=== PATIENT | female | born 1980 | race Caucasian/White ===

== ENCOUNTER 2016-11-15 20:01 | Emergency (ER) | payer OTHER ==
[~2016-11-15] VITALS: Ht 149.8 cm; Wt 53.1 kg
[2016-11-15] MEDS ORDERED: HYDROCODONE BIT1 T20 PO (20:24)
[2016-11-15] MEDS ORDERED: DULOXETINE HCL60 MG PO (20:25)
[2016-11-15] MEDS ORDERED: DIAZEPAM10 M1 PO (20:25)
[2016-11-15] MEDS ORDERED: FLUVOXAMINE MA100 MG PO (20:26)
[2016-11-15 20:27] VITALS: BP 117/68
== END 2016-11-15 21:04 | disposition home or self-care (01) ==
LOC: ED 20:01
DX: G89.29 Other chronic pain (principal); M25.531 Pain in right wrist; F17.200 Nicotine dependence, unspecified, uncomplicated; G40.909 Epilepsy, unspecified, not intractable, without status epilepticus; G35 Multiple sclerosis; F32.9 Major depressive disorder, single episode, unspecified

== ENCOUNTER 2017-03-01 17:25 | Emergency (ER) | payer OTHER ==
[~2017-03-01] VITALS: Ht 149.8 cm; Wt 51.7 kg
[~2017-03-01 17:25] MED LIST: DIAZEPAM10 M1 PO; DULOXETINE HCL60 MG PO; FLUVOXAMINE MA100 MG PO; HYDROCODONE BIT1 T20 PO
[2017-03-01 17:45] VITALS: BP 113/97
== END 2017-03-01 20:32 | disposition home or self-care (01) ==
LOC: ED 17:25
DX: S00.83XA Contusion of other part of head, initial encounter (principal); H93.13 Tinnitus, bilateral; F17.200 Nicotine dependence, unspecified, uncomplicated; W18.30XA Fall on same level, unspecified, initial encounter; Y93.89 Activity, other specified; Y92.9 Unspecified place or not applicable; Y99.9 Unspecified external cause status

== ENCOUNTER 2017-06-01 19:07 | Emergency (ER) | payer OTHER ==
[~2017-06-01] VITALS: Ht 167.6 cm; Wt 59.0 kg
[2017-06-01 19:34] VITALS: BP 142/76
[2017-06-01 20:03] LABS: BILIRUBIN NEGATIVE (NEGATIVE); BLOOD 1+ (NEGATIVE); CLARITY CLEAR (CLEAR); COLOR YELLOW (YELLOW); GLUCOSE NEGATIVE (NEGATIVE); KETONE NEGATIVE (NEGATIVE); LEUKO ESTERASE NEGATIVE (NEGATIVE); NITRITE NEGATIVE (NEGATIVE); UROBILINOGEN 0.2 E.U./dl (0.2-1.0)
[2017-06-01 20:03] LABS: BASO % 0.4 % (0.0-1.0); EOS # 0.3 10*3/uL (0.0-0.4); EOS % 2.6 % (1.0-4.0); HEMATOCRIT 39.5 % (37.0-47.0); HEMOGLOBIN 13.4 g/dl (12.0-16.0); LYMPH # 3.1 10*3/uL (1.3-4.4); MEAN CELL VOLUME 89.6 fl (81.0-99.0); MEAN CORPUSCULAR HGB 30.4 pg (27.0-31.0); MEAN CORPUSCULAR HGB CONC 33.9 g/dl (33.0-37.0); MEAN PLATELET VOLUME 9.8 fl (9.6-12.3); MONO # 0.7 10*3/uL (0.1-1.0); MONO % 7.2 % (3.0-9.0); NEUT # 5.8 10*3/uL (2.3-7.9); NEUT % 58.5 % (47.0-73.0); PLATELET COUNT AUTOMATED 240 10*3/uL (130-400); RED BLOOD COUNT 4.41 10*6/uL (4.10-5.10); RED CELL DISTRI WIDTH 12.5 % (0-14.5)
[2017-06-01 20:12] LABS: BACTERIA TRACE
[2017-06-01 20:20] LABS: ALBUMIN 4.2 gm/dl (3.1-4.5); ALKALINE PHOSPHATASE 96 U/L (45-117); BUN 6 mg/dl (7-24); CHLORIDE 106 mmol/L (98-107); CREATININE 0.86 mg/dL (0.55-1.02); POTASSIUM 3.8 mmol/L (3.5-5.1); SGOT/AST 8 IU/L (3-35); SGPT/ALT 14 U/L (12-78); SODIUM 141 mmol/L (136-145); TOTAL PROTEIN 7.7 gm/dL (6.4-8.2)
== END 2017-06-01 22:08 | disposition home or self-care (01) ==
LOC: ED 19:07
PROVIDERS: Nurse Practitioner Family
DX: R30.0 Dysuria (principal); R10.31 Right lower quadrant pain; F17.200 Nicotine dependence, unspecified, uncomplicated; Z90.710 Acquired absence of both cervix and uterus

== ENCOUNTER 2017-07-09 19:51 | Emergency (ER) | payer OTHER ==
[~2017-07-09] VITALS: Ht 149.8 cm; Wt 54.4 kg
[2017-07-09 19:59] VITALS: BP 139/85
[2017-07-09] MEDS ORDERED: ASPIRIN CHEWABL81 MG PO (20:00)
[2017-07-09] MEDS ORDERED: NEURONTIN100 MG PO (20:01)
[2017-07-09] MEDS ORDERED: VALIUM10 MG PO (20:03)
== END 2017-07-09 21:44 | disposition home or self-care (01) ==
LOC: ED 19:51
DX: M25.511 Pain in right shoulder (principal); G89.29 Other chronic pain; F17.200 Nicotine dependence, unspecified, uncomplicated; Z91.041 Radiographic dye allergy status; Z79.899 Other long term (current) drug therapy

== ENCOUNTER 2018-02-24 14:10 | Emergency (ER) | payer OTHER ==
[~2018-02-24] VITALS: Ht 149.8 cm; Wt 51.3 kg
[~2018-02-24 14:10] MED LIST changes: +ASPIRIN CHEWABL81 MG PO; +NEURONTIN100 MG PO; +VALIUM10 MG PO
[2018-02-24 14:16] VITALS: BP 132/93
[2018-02-24] MEDS ORDERED: Motrin,Rufen800 MG PO (14:31)
== END 2018-02-24 14:40 | disposition home or self-care (01) ==
LOC: ED 14:10
DX: G89.29 Other chronic pain (principal); M25.562 Pain in left knee; Z91.041 Radiographic dye allergy status; Z79.899 Other long term (current) drug therapy; Z79.82 Long term (current) use of aspirin; Z90.710 Acquired absence of both cervix and uterus

== ENCOUNTER 2019-08-15 14:53 | Emergency (ER) | payer OTHER ==
[~2019-08-15] VITALS: Ht 147.3 cm; Wt 51.7 kg
[~2019-08-15 14:53] MED LIST changes: +Motrin,Rufen800 MG PO
[2019-08-15] MEDS ORDERED: Motrin,Rufen800 MG PO (15:35)
[2019-08-15] MEDS ORDERED: AMOXICILLIN500 M2 PO (15:35)
[2019-08-15] MEDS ORDERED: CLINDAMYCIN HC300 MG PO (15:35)
== END 2019-08-15 16:00 | disposition home or self-care (01) ==
LOC: ED 14:53
DX: K04.7 Periapical abscess without sinus (principal); G35 Multiple sclerosis; Z91.041 Radiographic dye allergy status; Z88.6 Allergy status to analgesic agent; Z90.710 Acquired absence of both cervix and uterus

== ENCOUNTER → 2021-06-12 | Day surgery (SDC) | payer OTHER ==
[2021-06-08 15:45] LABS: BASO % 0.4 % (0.0-1.0); EOS # 0.2 10*3/uL (0.0-0.4); EOS % 1.6 % (1.0-4.0); HEMATOCRIT 42.5 % (37.0-47.0); LYMPH # 2.1 10*3/uL (1.3-4.4); LYMPH % 22.1 % (27.0-41.0); MEAN CELL VOLUME 90.8 fl (81.0-99.0); MEAN CORPUSCULAR HGB 30.1 pg (27.0-31.0); MEAN CORPUSCULAR HGB CONC 33.2 g/dl (33.0-37.0); MEAN PLATELET VOLUME 9.8 fl (9.6-12.3); MONO # 0.7 10*3/uL (0.1-1.0); MONO % 7.7 % (3.0-9.0); NEUT # 6.3 10*3/uL (2.3-7.9); NEUT % 67.7 % (47.0-73.0); PLATELET COUNT AUTOMATED 274 10*3/uL (130-400); RED BLOOD COUNT 4.68 10*6/uL (4.10-5.10); WHITE BLOOD COUNT 9.3 10*3/uL (4.8-10.8)
[2021-06-08 16:12] LABS: BUN 8 mg/dl (7-24); CHLORIDE 109 mmol/L (98-107); CREATININE 0.71 mg/dL (0.55-1.02); POTASSIUM 4.2 mmol/L (3.5-5.1); SODIUM 140 mmol/L (136-145)
[~2021-06-12] VITALS: Ht 147.3 cm; Wt 44.5 kg
[~2021-06-12] MED LIST changes: +AMOXICILLIN500 M2 PO; +CLINDAMYCIN HC300 MG PO; +OCREVUS; +ZINC10 M4 PO
[2021-06-12 07:45] VITALS: BP 121/85
[2021-06-12 10:19] VITALS: BP 85/56
[2021-06-12 10:34] VITALS: BP 93/56
[2021-06-12 10:49] VITALS: BP 90/62
[2021-06-12 11:00] VITALS: BP 95/61
== END | disposition home or self-care (01) ==
LOC: SDC 06-08 11:00
PROVIDERS: ATTEND Orthopaedic Surgery
DX: G56.01 Carpal tunnel syndrome, right upper limb (principal); I05.0 Rheumatic mitral stenosis; G62.9 Polyneuropathy, unspecified; Z79.899 Other long term (current) drug therapy; Z20.822 Contact with and (suspected) exposure to COVID-19

== ENCOUNTER → 2021-08-22 | Outpatient (CLI) | payer OTHER | END | disposition home or self-care (01) | LOC: RAD 11:09 | PROVIDERS: ATTEND Orthopaedic Surgery | DX: M25.531 Pain in right wrist (principal) ==